=== PATIENT | male | born 1945 | race Caucasian/White ===

== ENCOUNTER 2018-10-25 15:47 | Emergency (ER) | payer MEDICARE, OTHER ==
[2018-10-25] MEDS ORDERED: EPINEPHrine 1 MG/ML 30 ML MDV IVPUSH ONE (16:29)
[2018-10-25] MEDS ORDERED: EPINEPHrine 1:10,000 1 MG/10 ML Syringe IVPUSH ONE (16:34)
--- NOTE | 2018-10-25 17:18 | EDM.PDOC ---
ED HPI GENERAL MEDICAL PROBLEM - General Chief Complaint: Trauma Stated Complaint: HYPOTHERMIA-TRAUMA CODE Time Seen by Provider: 10/25/18 15:47 Source of Information: Reports: EMS History Limitations: Reports: Altered Mental Status - History of Present Illness INITIAL COMMENTS - FREE TEXT/NARRATIVE: c/o down in driveway pt found down in his driveway by postman with ambient temp in single digits pt arrived ED 11 minutes after they placed a call, trauma called placed I was present on arrival with anesthesia, Dr Dorado arrived a short while later no visible trauma noted, rectal temp 85.3 with HR 48-62 and BP 154/64 on arrival skin cool throughout, no blisters, no ecchymosis, no head or other trauma noted pupils 4/4 mm with 1+ cataracts b/l, not reactive, did have corneal reflexes was breathing spontaneously at scene and on arrival, initial PO 70% peripheral altho central PO 95% on 100% NRB and no ventilations bedside cardiac u/s showed regular LV contractions, hypokinesis, symmetric, normal apposition of AV leaflets, normal opening as pt maintained a good BP and PO, no CPR initiated altho peripheral pulses were difficult to detect, pt had spontaneous movement of respirations and arm on occasion CBC obtained but was obviously dilated as IV in both arms, additional labs not run as they would be inaccurate, u/a pending at time of transfer, urine did look concentrated, 250 cc of dark yellow fluid obtained after 2 liter NS pt did have one lower BP that was likely spurious, CPR begun nevertheless as a precaution as LV contractility remained hypokinetic, increased perfusion noted, SBP 92 prior to placement of Kevin, spontaneous vocal cord movement noted during intubation by anesthesia good BS b/l, no epigastric sounds, no wheezing CxR not obtained d/t time constraints skin cool but much warmer throughout with Mark hugger back of pt cooler than sides and anterior surface, 2 warm blankets placed on transfer cart air transport not available d/t cold, local EMS transferred pt with Kevin in place and Mark hugger 1 hr and 4 min after pt's arrival unknown cause of pt's collapse in his driveway, no records available in [facility], no records available from either [place] or [facility] in [facility] when called Review of Systems - Review of Systems Review Of Systems: Unable To Obtain ED EXAM, GENERAL - Physical Exam Exam: See Below Exam Limited By: Altered Mental Status General Appearance: Obtunded, Other (see HPI for details, no visible trauma, skin quite cool, some spontaneous movement, GCS 4/10) Eye Exam: Bilateral Eye: Other (pupils 4/4, sluggish corneal reflex present, pupils NR, 1+ cataracts b/l) Nose: Normal Inspection, Normal Mucosa, No Blood Throat/Mouth: Other (dentures placed in container, no oral trauma, small amount of blood came back in ET tube after 15 min of ET ventilations, BS remained symmetric with no wheezes however) Head: Atraumatic, Normocephalic Neck: Normal Inspection, Supple, Non-Tender, Full Range of Motion, Other (head supported by RN when pt rolled as a precaution although no direct clinical evidence of a head injury and no fall greater than from a stand) Respiratory/Chest: Lungs Clear Cardiovascular: Other (heart sounds distant) GI/Abdominal: Soft Back Exam: Normal Inspection Extremities: Normal Inspection Skin Exam: Cool, Other (mild cynaosis only, mainly cool but not cold to the touch, pt wearing several layers of clothing including boots, EMS reports that pt had pulled his sweat pants down to his mid thighs) Course - Orders/Labs/Meds Orders: Active Orders 24 hr Category Date Time Status CBC WITH AUTO DIFF [HEME] Stat Lab 10/25/18 16:10 Results URINALYSIS W/MICROSCOPIC [UA W/MICROSCOPIC] [URIN] Stat Lab 10/25/18 16:47 Ordered Labs: Laboratory Tests 10/25/18 Range/Units 16:10 WBC 1.8 L* (4.5-12.0) X10-3/uL RBC 1.90 L (4.30-5.75) x10(6)uL Hgb 5.7 L* (11.5-15.5) g/dL Hct 17.6 L* (30.0-51.3) % MCV 92.6 (80-96) fL MCH 30.3 (27.7-33.6) pg MCHC 32.7 (32.2-35.4) g/dL RDW 19.8 H (11.5-15.5) % Plt Count 26 L* (125-369) X10(3)uL MPV 8.9 (7.4-10.4) fL Add Manual Diff Yes - Re-Assessments/Exams Free Text/Narrative Re-Assessment/Exam: 10/25/18 17:22 strong 2+ femoral pulse with Kevin precipitating event unknown, did appear to maintain adequate oxygenation and blood pressure and perfusion while in the ED Dr Dorado gave report to ED physician in [facility] repeat rectal temp 82.5 unable to obtain an EKG d/t cold skin, no tracing seen, audible heart tones and blips on monitor noted throughout Departure - Departure Time of Disposition: 16:50 Disposition: DC/Tfer to [facility] 02 Condition: Critical Clinical Impression: Hypothermia, Unresponsive - Discharge Information *PRESCRIPTION DRUG MONITORING PROGRAM REVIEWED*: Not Applicable *COPY OF PRESCRIPTION DRUG MONITORING REPORT IN PATIENT LILIANE: Not Applicable Referrals: PCP,Unknown [Primary Care Provider] - Additional Instructions: Family unable to be contacted. A sister was listed in records as his contact, however did not respond to phone calls. - My Orders Last 24 Hours: My Active Orders 10/25/18 16:10 CBC WITH AUTO DIFF [HEME] Stat 10/25/18 16:47 URINALYSIS W/MICROSCOPIC [UA W/MICROSCOPIC] [URIN] Stat - Assessment/Plan Last 24 Hours: My Active Orders 10/25/18 16:10 CBC WITH AUTO DIFF [HEME] Stat 10/25/18 16:47 URINALYSIS W/MICROSCOPIC [UA W/MICROSCOPIC] [URIN] Stat
--- NOTE | 2018-10-25 17:19 | PCM.SN ---
- Free Text/Narrative Note: CRITICAL CARE MANAGEMENT 1648 Unconscious patient to ER with extreme hypothermia,rectal temperature at 85 degrees rectally.blood pressure 150/100 on admission.SAO2 difficult to obtain due to being so cold.ocassional reading of 95 to 98% connectted both IV' s to stephie hugggers.warm packs to skin.Stephie hugger applied. Within 45 to 55 minutes after admission no pulse palpated.CPR started.Intubated patient with size 8 tube.Bilateral breath sounds at 22 cm.CO2 at 25 to30.B/P 95/ 38. Report given to paramedics with instruction on how to connect stephie huggers.Equipped with Kevin CPR and will have continuous CPR on way to [place].
--- NOTE | 2018-10-25 20:47 | ER ---
DATE OF CONSULTATION: 10/25/2018 HISTORY: This 73-year-old gentleman is seen in the emergency room as a trauma code. He is brought in by ambulance after being found lying in his driveway by the postman. It is unknown how long he was lying outside. There is no other history available. Temperatures today were in the low-teens. Upon arrival to the emergency room, he was unresponsive, but breathing spontaneously. He did have blood pressures that were recorded and was cold completely over his entire body. Mark Hugger was in place. Warm IV fluids were running. PAST MEDICAL HISTORY: Unavailable. MEDICATIONS: Unavailable. MEDICAL ALLERGIES: Unavailable. PHYSICAL EXAMINATION: GENERAL: Reveals an elderly unkempt male who is cool and clammy. He does not have any spontaneous eye movements or body movements. GCS is 3. He does have breath sounds. No chest deformity is present. HEAD AND NECK: Appear normal. I do not see any evidence of trauma. ABDOMEN: Soft. Without any apparent injuries. SKIN: His upper and lower extremities are cold. I do not see any evidence of necrotic or ischemic skin. Patient is log-rolled and back is cold, but otherwise appears normal. Rectal temperature is 82.5. EMERGENCY DEPARTMENT COURSE: Shortly after I arrived, he began to have a thready pulse and no cardiac activity was present on the monitor. CPR was begun. Epinephrine was also given. At that time, I spoke with the emergency room doctor at [facility] in [place] for the second time to update him on the situation. Both of us felt that since he came in with cardiac activity and spontaneous respirations and we had already started the rewarming, that we should continue with transfer arrangements. Because of the weather, air transfer was not available. Therefore, he was transferred by ground ambulance with Mark Hugger and warm IV fluids running. The Kevin was used for CPR. Pedraza catheter had been inserted prior to transfer and did have clear yellow fluid. Laboratory evaluation was not available due to being diluted with IV fluids. ASSESSMENT: 1. Severe hypothermia. 2. Cardiac arrest. PLAN: The patient will be transferred to [facility]. I spoke with the emergency room physician twice, and he will have their trauma team available for possible rewarming procedures. One hour was spent with the patient for critical care in the emergency room. /[id number] SOFÍA/FATIMAH MTDD
== END 2018-10-25 16:50 ==
LOC: FB.ED 15:47
DX: I46.9 Cardiac arrest, cause unspecified (principal); T68.XXXA Hypothermia, initial encounter; X31.XXXA Exposure to excessive natural cold, initial encounter
CPT/HCPCS: 31500; 36415; 51702; 80053; 81001; 82550; 83605; 84484; 85025; 85610; 92950; 96361; 96374; 99291-25; G0390; J0171